=== PATIENT | male | born 1970 | race Caucasian/White ===

== ENCOUNTER 2025-02-05 19:38 | Emergency (ER) | payer BC ==
[~2025-02-05] VITALS: Ht 182.9 cm; Wt 114.0 kg
[2025-02-05] MEDS: HYDROCODONE/ACETAMINOPHEN 10/325MG TABLET PO ONE (20:31)
[2025-02-05] MEDS: KETOROLAC 30MG/ML VIAL IM ONE (20:32)
[2025-02-05 20:49] VITALS: O2SAT 96
[2025-02-05] MEDS: ONDANSETRON HCL 4MG/2ML INJ IV ONE (21:09)
[2025-02-05] MEDS: PROPOFOL 200MG/20ML VIAL IV ONE (21:26)
[2025-02-05] MEDS ORDERED: HYDR-4001 MT ×2 (22:49→23:26)
[2025-02-05] MEDS ORDERED: IBUP-2030 MT (22:49)
[2025-02-05] MEDS: KETOROLAC 30MG/ML VIAL IV ONE (23:43)
[2025-02-05 23:53] VITALS: BP 105/62; PULSE 60; RESP 12; TEMP 36.7; O2SAT 96
== END 2025-02-06 00:18 | disposition home or self-care (01) ==
LOC: ER 19:38
DX: S82.62XA Displaced fracture of lateral malleolus of left fibula, initial encounter for closed fracture (principal); I10 Essential (primary) hypertension; R06.02 Shortness of breath; W19.XXXA Unspecified fall, initial encounter; Y93.89 Activity, other specified; Y92.89 Other specified places as the place of occurrence of the external cause; Y99.8 Other external cause status
CPT/HCPCS: 73610; 73630; 94664; 27788; 96372; 96374; 96375; 99152; 99285; J1885; J2405; J2704; Z7610